=== PATIENT | female | born 1980 | race Caucasian/White ===

== ENCOUNTER 2023-07-14 12:06 | Emergency (ER) | payer MEDICAID ==
[~2023-07-14] VITALS: Ht 167 cm; Wt 88.4 kg
[2023-07-14 12:57] LABS: BACTERIA,URINE MODERATE /HPF; BILIRUBIN,URINE NEGATIVE (NEGATIVE); CLARITY,URINE CLEAR; COLOR,URINE YELLOW; GLUCOSE, URINE (UA) NEGATIVE (NEGATIVE); KETONES,URINE NEGATIVE (NEGATIVE); LEUKOCYTE ESTERASE ,URINE 1+ (NEGATIVE); NITRITE,URINE POSITIVE (NEGATIVE); PH,URINE 6.5 (5-9); PROTEIN,URINE NEGATIVE (NEGATIVE); RBC,URINE RARE /HPF
[2023-07-14 12:58] LABS: TRICHOMONAS,URINE FEW /HPF
[2023-07-14] MEDS ORDERED: NS IV 1000 ML 1,000 ML IV SCH (13:00)
[2023-07-14] MEDS ORDERED: IOHEXOL 350 MG/ML 100 ML (OMNIPAQUE 350) VIAL IV ONE (13:15)
[2023-07-14] MEDS ORDERED: NS 100 ML (IVPB) BAG IV ONE (13:15)
[2023-07-14] MEDS ORDERED: HOLD METFORMIN - RECEIVED CONTRAST 20 ML VIAL IV SCH (13:15)
[2023-07-14] MEDS ORDERED: cefTRIAXone IV/IM 1,000 MG in NS (IVPB) 50 ML 50 ML IV ONE (13:15)
--- NOTE | 2023-07-14 13:18 | ED GU-Female ---
General Chief Complaint: - Reproductive Stated Complaint: UTI | BLADDER PAIN Nursing Triage Note: PT AMB TO [facility] WITH C/O BURNING WHEN URINATING, URGENCY AND URINATING BLOOD AT TIMES OVER THE LAST FEW MONTHS. PT UNABLE TO FILL RX WHEN SHE WAS SEEN IN AN ER FOR SAME SX Source: patient Exam Limitations: no limitations (ROXANNA LOPEZ APRN) History of Present Illness Date Seen by Provider: Jul 14, 2023 Time Seen by Provider: 12:29 Initial Comments 42-year-old female presents to the ER with complaints of bladder infection for the last 2 months. She states she was seen in the ER in [place] approximately 2 months ago, was unable to fill the prescription because she did not have [place] Medicaid. She states she took an old antibiotic, and thought that her symptoms were getting better. States that 1 morning she woke up with severe groin pain and was seen at a hospital in [place] again. She was again prescribed antibiotic, but could not fill it. She states she was told she had kidney stones. She is currently complaining of lower abdominal pain, groin pain, nausea, vomiting, dysuria, hematuria, and right flank pain. (ROXANNA LOPEZ APRN) Allergies and Home Medications Allergies Coded Allergies: latex (Verified Allergy, Unknown, 07/14/23) Patient Home Medication List Home Medication List Reviewed: Yes (ROXANNA LOPEZ APRN) Fluconazole (Diflucan) 150 Mg Tablet, 150 MG PO ONCE Prescribed by: Roxanna Powers on 07/14/23 1447 Phenazopyridine HCl (Pyridium) 100 Mg Tablet, 100 MG PO TIDPC Prescribed by: Roxanna Powers on 07/14/23 1447 Sulfamethoxazole/Trimethoprim (Bactrim Ds Tablet) 1 Each Tablet, 1 EACH PO BID Prescribed by: Roxanna Powers on 07/14/23 1447 Review of Systems Review of Systems Constitutional: see HPI (ROXANNA LOPEZ APRN) Past Erkncjf-Snewhf-Lwaxrx Hx Patient Social History Tobacco Use?: Yes Tobacco type used: Cigarettes Substance use?: No Alcohol Use?: No Pt feels they are or have been: No (ROXANNA LOPEZ APRN) Past Medical History Surgery/Hospitalization HX: HYSTO, D&C, R KNEE ANXIETY, DEPRESSION, GERD, INSOMNIA (ROXANNA LOPEZ APRN) Physical Exam Vital Signs Vital Signs - First Documented 07/14/23 12:22 Temp 37.1 Pulse 75 Resp 11 B/P (MAP) 112/77 (89) Pulse Ox 96 O2 Delivery Room Air (ANTHONY LAWSON MD) Vital Signs Capillary Refill : (ROXANNA LOPEZ APRN) Height, Weight, BMI Height: '" Weight: lbs. oz. kg; 31.00 BMI Method: General Appearance: WD/WN, no apparent distress Neck: supple, normal inspection Cardiovascular: regular rate, rhythm Respiratory: lungs clear, normal breath sounds, no respiratory distress, no accessory muscle use Gastrointestinal: normal bowel sounds, soft, tenderness (All quadrants) Extremities: normal range of motion, normal inspection Neurologic/Psychiatric: alert, normal mood/affect Skin: normal color, warm/dry (ROXANNA LOPEZ APRN) Progress/Results/Core Measures Suspected Sepsis SIRS Temperature: Pulse: 75 Respiratory Rate: 11 Laboratory Tests 07/14/23 13:14: White Blood Count 8.9 Blood Pressure 112 /77 Mean: 89 Laboratory Tests 07/14/23 13:14: Creatinine 0.69, Platelet Count 268, Total Bilirubin 0.2 (ROXANNA LOPEZ APRN) Results/Orders Lab Results Laboratory Tests Test 07/14/23 12:39 07/14/23 13:14 Range/Units Urine Color YELLOW Urine Clarity CLEAR Urine pH 6.5 5-9 Urine Specific [place] 1.025 H 1.016-1.022 Urine Protein NEGATIVE NEGATIVE Urine Glucose (UA) NEGATIVE NEGATIVE Urine Ketones NEGATIVE NEGATIVE Urine Nitrite POSITIVE H NEGATIVE Urine Bilirubin NEGATIVE NEGATIVE Urine Urobilinogen 0.2 < = 1.0 MG/DL Urine Leukocyte Esterase 1+ H NEGATIVE Urine RBC (Auto) 1+ H NEGATIVE Urine RBC RARE /HPF Urine WBC 10-25 H /HPF Urine Squamous Epithelial Cells 10-25 H /HPF Urine Crystals NONE /LPF Urine Bacteria MODERATE H /HPF Urine Casts NONE /LPF Urine Mucus NEGATIVE /LPF Urine Trichomonas FEW H /HPF Urine Culture Indicated YES White Blood Count 8.9 4.3-11.0 10^3/uL Red Blood Count 4.83 3.80-5.11 10^6/uL Hemoglobin 14.7 11.5-16.0 g/dL Hematocrit 45 35-52 % Mean Corpuscular Volume 93 80-99 fL Mean Corpuscular Hemoglobin 30 25-34 pg Mean Corpuscular Hemoglobin Concent 33 32-36 g/dL Red Cell Distribution Width 13.5 10.0-14.5 % Platelet Count 268 130-400 10^3/uL Mean Platelet Volume 9.9 9.0-12.2 fL Immature Granulocyte % (Auto) 0 % Neutrophils (%) (Auto) 65 42-75 % Lymphocytes (%) (Auto) 23 12-44 % Monocytes (%) (Auto) 9 0-12 % Eosinophils (%) (Auto) 2 0-10 % Basophils (%) (Auto) 1 0-10 % Neutrophils # (Auto) 5.8 1.8-7.8 10^3/uL Lymphocytes # (Auto) 2.0 1.0-4.0 10^3/uL Monocytes # (Auto) 0.8 0.0-1.0 10^3/uL Eosinophils # (Auto) 0.2 0.0-0.3 10^3/uL Basophils # (Auto) 0.1 0.0-0.1 10^3/uL Immature Granulocyte # (Auto) 0.0 0.0-0.1 10^3/uL Sodium Level 138 135-145 MMOL/L Potassium Level 3.9 3.6-5.0 MMOL/L Chloride Level 107 98-107 MMOL/L Carbon Dioxide Level 23 21-32 MMOL/L Anion Gap 8 5-14 MMOL/L Blood Urea Nitrogen 10 7-18 MG/DL Creatinine 0.69 0.60-1.30 MG/DL Estimat Glomerular Filtration Rate 112 BUN/Creatinine Ratio 14 Glucose Level 85 70-105 MG/DL Calcium Level 8.7 8.5-10.1 MG/DL Corrected Calcium 9.0 8.5-10.1 MG/DL Total Bilirubin 0.2 0.1-1.0 MG/DL Aspartate Amino Transf (AST/SGOT) 22 5-34 U/L Alanine Aminotransferase (ALT/SGPT) 25 0-55 U/L Alkaline Phosphatase 51 40-136 U/L Total Protein 6.6 6.4-8.2 GM/DL Albumin 3.6 3.2-4.5 GM/DL Lipase 29 8-78 U/L (ANTHONY LAWSON MD) Micro Results Microbiology 07/14/23 Urine Culture - Preliminary, Resulted Escherichia coli (ANTHONY LAWSON MD) Vital Signs/I&O Capillary Refill : (ROXANNA LOPEZ APRN) Blood Pressure Mean: 89 Progress Note : Progress Note Patient seen and evaluated, resting comfortably in bed, no acute distress. Based on exam and symptoms, differential diagnosis includes but not limited to UTI, pyelonephritis, nephrolithiasis, other intra-abdominal pathology. Work-up initiated including CBC, CMP, lipase, UA, CT abdomen pelvis. IV fluids ordered. 1302 urinalysis reviewed. Positive for nitrites, 1+ leukocytes, 1+ RBCs, 10-25 RBCs, 10-25 squamous epithelial cells, moderate bacteria. Urinalysis also shows trichomonas. Rocephin ordered for urinary tract infection. Will treat trichomonas with Flagyl. [address] reviewed. CBC grossly normal. CMP grossly normal. CT abdomen pelvis shows 3 mm nonobstructing renal stones bilaterally, no ureteral stone or hydronephrosis. No other acute abnormality in the abdomen or pelvis. Results discussed with patient. Informed patient that she has UTI and trichomonas. Patient reports she is only in a relationship with 1 person, but states her and her were for a little while and he did have sexual contact with another person. I offered to test patient for gonorrhea and chlamydia, she refused. She states she will follow-up with her primary care provider to get testing for these. Will discharge with antibiotic for UTI, single dose of Flagyl ordered for here now. Patient requesting prescription for Pyridium and Diflucan because she always gets a yeast infection with antibiotics. Discharge instructions and return precautions provided. (ROXANNA LOPEZ APRN) Diagnostic Imaging Diagonstic Imaging: CT Plain Films/CT/US/NM/MRI: abdomen, pelvis Comments [facility]. [place], [place] NAME: [facility] REC#: [id number] PT STATUS: DEP ER : 1980 PHYSICIAN: ROXANNA LOPEZ APRN ADMIT DATE: 07/14/23/ER Signed Date of Exam:07/14/23 CT ABDOMEN/PELVIS W Procedure: CT abdomen and pelvis with contrast. Technique: Multiple contiguous axial images were obtained through the abdomen and pelvis after administration of intravenous contrast. Auto Exposure Controls were utilized during the CT exam to meet ALARA standards for radiation dose reduction. All CT scans use one or more of the following dose optimizing techniques: automated exposure control, MA and/or KvP adjustment based on patient size and exam type or iterative reconstruction. Date: July 14, 2023. Indication: 42-year-old female, abdominal pain. Burning when urinating. Hematuria. Comparison: None available. Findings: There is very mild dependent atelectasis in the right and left lower lobes. The heart is not enlarged. There is no pericardial effusion. The liver is unremarkable in size and contour. There is no identified liver lesion. The main, right, and left portal veins are patent. The gallbladder is unremarkable. There is no intrahepatic or extrahepatic bile duct dilation. The main pancreatic duct is not abnormally dilated. Unremarkable appearance of the pancreatic parenchyma. The spleen is normal in size. The adrenal glands are unremarkable. There is a 2 to 3 mm nonobstructing right renal stone on axial image 73. There is a 2 mm left renal stone on axial image 63. The urinary collecting systems are not distended. There is no identified ureteral stone. Urinary bladder is unremarkable. Uterus is not seen and may be surgically absent. The appendix is unremarkable. The intestinal tract is not distended. There is no free intraperitoneal air. There is no drainable fluid collection. There is no free fluid in the abdomen or pelvis. There is no identified acute bony abnormality. Impression: 1. 3 mm nonobstructing renal stones bilaterally. No ureteral stone or hydronephrosis. 2. No acute abnormality in the abdomen or pelvis. Dictated by: Dictated on workstation # [id number] Dict: 07/14/23 1401 Trans: 07/14/231718 [facility] [id number] Interpreted by: ANGELA STEVENS MD Electronically signed by: ANGELA STEVENS MD 07/14/23 6645 (ROXANNA LOPEZ APRN) Departure Impression Primary Impression: Urinary tract infection Additional Impression: Trichomoniasis Disposition: 01 HOME, SELF-CARE Condition: Stable Departure-Patient Inst. Decision time for Depature: 14:41 (ROXANNA LOPEZ APRN) Referrals: NO,LOCAL PHYSICIAN (PCP/Family) Primary Care Physician Patient Instructions: Trichomoniasis (DC), Urinary Tract Infection, Adult (DC) Add. Discharge Instructions: Complete full course of antibiotic as directed. Take Pyridium as needed for pain caused by your urinary tract infection. Take the Diflucan if you develop a yeast infection. All of your partners need to be tested and treated for sexually transmitted infections. You need to abstain from sex for at least 2 weeks. You need to see your primary care provider and get tested for other STDs as well since you did not want to be tested here. Return for any new, concerning, or worsening symptoms. All discharge instructions reviewed with patient and/or family. Voiced understanding. Scripts Fluconazole (Diflucan) 150 Mg Tablet 150 MG PO ONCE for 1 Day, #1 TAB 0 Refills Prov: ROXANNA LOPEZ APRN 07/14/23 Phenazopyridine HCl (Pyridium) 100 Mg Tablet 100 MG PO TIDPC for 3 Days, #9 TAB 0 Refills Prov: ROXANNA LOPEZ APRN 07/14/23 Sulfamethoxazole/Trimethoprim (Bactrim Ds Tablet) 1 Each Tablet 1 EACH PO BID for 10 Days, #20 TAB 0 Refills Prov: ROXANNA LOPEZ APRN 07/14/23 ATTENDING PHYSICIAN NOTE: I was physically present as attending physician in the emergency department during the care of this patient, but I was not directly involved in the decision making or delivery of care for this patient. (ANTHONY LAWSON MD) ROXANNA LOPEZ APRN Jul 14, 2023 13:18 ANTHONY LAWSON MD Jul 16, 2023 04:41
[2023-07-14 13:20] LABS: BASOPHILS # (AUTO) 0.1 10^3/uL (0.0-0.1); BASOPHILS % (AUTO) 1 % (0-10); EOSINOPHILS # (AUTO) 0.2 10^3/uL (0.0-0.3); EOSINOPHILS % (AUTO) 2 % (0-10); HEMATOCRIT 45 % (35-52); HEMOGLOBIN 14.7 g/dL (11.5-16.0); LYMPHOCYTES % (AUTO) 23 % (12-44); MEAN CORPUSCULAR HEMOGLOBIN 30 pg (25-34); MEAN CORPUSCULAR HGB CONC 33 g/dL (32-36); MEAN CORPUSCULAR VOLUME 93 fL (80-99); MEAN PLATELET VOLUME 9.9 fL (9.0-12.2); MONOCYTES # (AUTO) 0.8 10^3/uL (0.0-1.0); MONOCYTES % (AUTO) 9 % (0-12); NEUTROPHILS # (AUTO) 5.8 10^3/uL (1.8-7.8); NEUTROPHILS % (AUTO) 65 % (42-75); PLATELET COUNT 268 10^3/uL (130-400); WHITE BLOOD COUNT 8.9 10^3/uL (4.3-11.0)
[2023-07-14 13:29] LABS: ALBUMIN 3.6 GM/DL (3.2-4.5); POTASSIUM 3.9 MMOL/L (3.6-5.0)
[2023-07-14 13:30] LABS: CALCIUM 8.7 MG/DL (8.5-10.1)
[2023-07-14 13:31] LABS: TOTAL PROTEIN 6.6 GM/DL (6.4-8.2)
[2023-07-14 13:33] LABS: BILIRUBIN,TOTAL 0.2 MG/DL (0.1-1.0)
[2023-07-14 13:35] LABS: CREATININE SERUM 0.69 MG/DL (0.60-1.30)
--- NOTE | 2023-07-14 14:10 | Diagnostic Imaging Report ---
Procedure: CT abdomen and pelvis with contrast. Technique: Multiple contiguous axial images were obtained through the abdomen and pelvis after administration of intravenous contrast. Auto Exposure Controls were utilized during the CT exam to meet ALARA standards for radiation dose reduction. All CT scans use one or more of the following dose optimizing techniques: automated exposure control, MA and/or KvP adjustment based on patient size and exam type or iterative reconstruction. Date: July 14, 2023. Indication: 42-year-old female, abdominal pain. Burning when urinating. Hematuria. Comparison: None available. Findings: There is very mild dependent atelectasis in the right and left lower lobes. The heart is not enlarged. There is no pericardial effusion. The liver is unremarkable in size and contour. There is no identified liver lesion. The main, right, and left portal veins are patent. The gallbladder is unremarkable. There is no intrahepatic or extrahepatic bile duct dilation. The main pancreatic duct is not abnormally dilated. Unremarkable appearance of the pancreatic parenchyma. The spleen is normal in size. The adrenal glands are unremarkable. There is a 2 to 3 mm nonobstructing right renal stone on axial image 73. There is a 2 mm left renal stone on axial image 63. The urinary collecting systems are not distended. There is no identified ureteral stone. Urinary bladder is unremarkable. Uterus is not seen and may be surgically absent. The appendix is unremarkable. The intestinal tract is not distended. There is no free intraperitoneal air. There is no drainable fluid collection. There is no free fluid in the abdomen or pelvis. There is no identified acute bony abnormality. Impression: 1. 3 mm nonobstructing renal stones bilaterally. No ureteral stone or hydronephrosis. 2. No acute abnormality in the abdomen or pelvis. Dictated by: Dictated on workstation # [id number]
[2023-07-14] MEDS ORDERED: metroNIDAZOLE 250 MG TABLET PO ONE (14:45)
[2023-07-14] MEDS ORDERED: PHEN-639 PO (14:47)
[2023-07-14] MEDS ORDERED: FLUC150T PO (14:47)
[2023-07-14] MEDS ORDERED: SULF1TAB38 PO (14:47)
[2023-07-14] MEDS ORDERED: metroNIDAZOLE 500 MG TABLET ONE (14:56)
[2023-07-14 15:01] VITALS: BP 118/74
== END 2023-07-14 15:02 | disposition home or self-care (01) ==
LOC: ER 12:11
DX: N39.0 Urinary tract infection, site not specified (principal); A59.9 Trichomoniasis, unspecified; N20.0 Calculus of kidney; F17.210 Nicotine dependence, cigarettes, uncomplicated; Z91.040 Latex allergy status
CPT/HCPCS: 36415; 74177; 80053; 81000; 83690; 85025; 87077; 87088; 87186

== ENCOUNTER 2023-07-19 16:24 | Emergency (ER) | payer MEDICAID ==
[~2023-07-19] VITALS: Ht 170.2 cm; Wt 86.2 kg
[~2023-07-19 16:24] MED LIST: FLUC150T PO; PHEN-639 PO; SULF1TAB38 PO
--- NOTE | 2023-07-19 16:44 | ED Back Pain ---
General Chief Complaint: Back Problems Stated Complaint: BACK PAIN Nursing Triage Note: PT AMB TO ED BY POV WITH C/O R SIDED MID BACK PAIN. PT REPORTS PAIN BEGAN LAST NIGHT AND HAS PROGRESSIVELY GOTTEN WORSE. PAIN MUCH WORSE WITH MOVEMENT AND BREATHING. PT REPORTS SHE TOOK IBUPROFEN AND ICY HOT WITH NO RELIEF. Source of Information: Patient Exam Limitations: No Limitations History of Present Illness Date Seen by Provider: Jul 19, 2023 Time Seen by Provider: 16:32 Initial Comments Patient is a 42-year-old female who presents to the emergency room with a chief complaint of right sided thoracic back pain. She states the pain started last night and has continued to get worse. She states it hurts to take a deep breath. She is not coughing, no hemoptysis. She does not feel short of breath. She states the pain is worse with movement. She states she did place some "racquetball" last night but no direct trauma. She states she at one point planted her right foot wrong and thinks that she might of twisted. She has taken 4 doses today of 800 mg of ibuprofen without relief. She is applied IcyHot without relief. No rashes, fevers, chills. The pain does not radiate. She denies any weakness numbness or tingling. Timing/Duration: 24 Hours Severity: Severe Pain/Injury Location: Back Associated Symptoms: denies symptoms Allergies and Home Medications Allergies Coded Allergies: latex (Verified Allergy, Unknown, 07/14/23) Patient Home Medication List Home Medication List Reviewed: Yes Fluconazole (Diflucan) 150 Mg Tablet, 150 MG PO ONCE Prescribed by: Roxanna Powers on 07/14/231446 Phenazopyridine HCl (Pyridium) 100 Mg Tablet, 100 MG PO TIDPC Prescribed by: Roxanna Powers on 07/14/231446 Sulfamethoxazole/Trimethoprim (Bactrim Ds Tablet) 1 Each Tablet, 1 EACH PO BID Prescribed by: Roxanna Powers on 07/14/231446 Review of Systems Constitutional: see HPI EENTM: no symptoms reported Respiratory: no symptoms reported Cardiovascular: no symptoms reported Gastrointestinal: no symptoms reported Genitourinary: no symptoms reported Musculoskeletal: back pain Skin: no symptoms reported Past Bxrwwka-Aemmbx-Vosyof Hx Patient Social History Tobacco Use?: Yes Tobacco type used: Cigarettes Smoking Status: Current Everyday Smoker Use of E-Cig and/or Vaping dev: Yes E-Cig or Vaping type used: Nicotine Use of E-Cig and/or Vaping Patrick: Current Everyday User Substance use?: No Alcohol Use?: No Pt feels they are or have been: No Past Medical History Surgery/Hospitalization HX: HYSTO, D&C, R KNEE ANXIETY, DEPRESSION, GERD, INSOMNIA Physical Exam Vital Signs Vital Signs - First Documented 07/19/23 16:31 Temp 36.8 Pulse 81 Resp 18 B/P (MAP) 111/83 (92) Pulse Ox 98 O2 Delivery Room Air Capillary Refill : Less Than 3 Seconds Height, Weight, BMI Height: '" Weight: lbs. oz. kg; 29.00 BMI Method: General Appearance: WD/WN, Anxious HEENT: PERRL/EOMI Cardiovascular: Regular Rate, Rhythm Respiratory: Lungs Clear, Normal Breath Sounds, No Accessory Muscle Use, No Respiratory Distress Gastrointestinal: Non Tender, Soft Back: Normal Inspection, Other (Point tenderness to the right posterior ribs approximately the level of T4-5) Extremity: Normal Capillary Refill, Normal Inspection, Normal Range of Motion Neurologic/Psychiatric: Alert, Oriented x3, No Motor/Sensory Deficits, Normal Mood/Affect Skin: Normal Color, Diaphoresis Procedures/Interventions Progress Trigger pont injection of 2.5ml 0.5% bupivicaine and 1% lidocaine 2.5cc. Waited about 15m and reassessed patient - she had no relief of her symptoms. Progress/Results/Core Measures Results/Orders Vital Signs/I&O 07/19/23 16:31 Temp 36.8 Pulse 81 Resp 18 B/P (MAP) 111/83 (92) Pulse Ox 98 O2 Delivery Room Air Blood Pressure Mean: 92 Progress Progress Note : Time: 17:07 Progress Note Advised patient to further space out her Ibuprofen dosing (800mg every 8 hours and always with food). Will give her 2 days of tramadol as well. Recc Lidocaine patches and stretching. REturn precautions provided. Departure Impression Primary Impression: Thoracic back pain Qualified Codes: M54.6 - Pain in thoracic spine Disposition: 01 HOME, SELF-CARE Condition: Stable Departure-Patient Inst. Decision time for Depature: 17:08 Referrals: [facility] [place],LOCAL PHYSICIAN (PCP) Primary Care Physician Patient Instructions: Muscle Strain (DC) Add. Discharge Instructions: You can use over the counter lidocaine patches to the sore area and/or over the counter Diclofenac gel - which are both very good for muscle pain. Do gentle stretching of your upper back and right arm to help improve spasm. Tramadol 1 pill every 6 hours as needed for more severe pain. Heat and ice packs alternating will also help. Return to the Emergency Department for any new, concerning or emergent complaints. Follow up with a primary care provider. Scripts Tramadol HCl (Tramadol HCl) 50 Mg Tablet 50 MG PO Q6H PRN for PAIN, #8 TAB 0 Refills Prov: JOSSELINE STEVE MD 07/19/23 JOSSELINE STEVE MD Jul 19, 2023 16:44
[2023-07-19] MEDS ORDERED: TRM50T PO (17:11)
[2023-07-19 17:28] VITALS: BP 104/76
[2023-07-21] MEDS ORDERED: NITR-65 PO (09:02)
== END 2023-07-19 17:28 | disposition home or self-care (01) ==
LOC: EDUNIT# 16:24 → ER 16:27
DX: M54.6 Pain in thoracic spine (principal); F17.210 Nicotine dependence, cigarettes, uncomplicated; F17.290 Nicotine dependence, other tobacco product, uncomplicated; Z91.040 Latex allergy status; Z71.6 Tobacco abuse counseling
CPT/HCPCS: 99281